=== PATIENT | male | born 1950 | race Caucasian/White ===

== ENCOUNTER 2020-12-13 15:00 | Day surgery (SDC) | payer BC, MEDICARE ==
[~2020-12-13] VITALS: Ht 177.8 cm; Wt 92.6 kg
[2020-12-13] VITALS (17 sets, daily range): BP systolic 107–139; BP diastolic 53–98
[2020-12-13 13:47] LABS: HEMATOCRIT 47 % (40-54); HEMOGLOBIN 15.3 g/dL (13.3-17.7); MEAN CORPUSCULAR HEMOGLOBIN 30 pg (25-34); MEAN CORPUSCULAR HGB CONC 33 g/dL (32-36); MEAN CORPUSCULAR VOLUME 90 fL (80-99); MEAN PLATELET VOLUME 9.4 fL (9.0-12.2); PLATELET COUNT 205 10^3/uL (130-400); WHITE BLOOD COUNT 7.2 10^3/uL (4.3-11.0)
[2020-12-13 14:00] LABS: INR 0.9 (0.8-1.4); PROTHROMBIN TIME PATIENT 12.3 SEC (12.2-14.7)
[2020-12-13 14:06] LABS: ALBUMIN 4.4 GM/DL (3.2-4.5); BILIRUBIN,TOTAL 0.4 MG/DL (0.1-1.0); CALCIUM 10.3 MG/DL (8.5-10.1); CREATININE SERUM 1.34 MG/DL (0.60-1.30); POTASSIUM 4.4 MMOL/L (3.6-5.0); TOTAL PROTEIN 7.4 GM/DL (6.4-8.2)
--- NOTE | 2020-12-13 14:53 | Discharge Inst-Post CATH ---
Discharge Inst-CATH/EP Post Cardiac Cath/EP D/C Inst Follow Up/Plan F/u with Dr Tracy in 2 weeks ACTIVITY * Go Home directly and rest. * Limit activity of the leg (or wrist if it was used) for 7 days including aerobics, swimming, jogging, bicycling, etc. * Restrict stair-climbing for 7 days if possible, if not, climb up with your n on-cath leg, then bring together on the same step. * Avoid lifting, pushing, pulling or excessive movement of the affected ex tremity for 7 days. * Customary sexual activity may be resumed after 2 days-use caution not to use a position that strains or causes pain to the affected extremity. * No driving for 24 hours. * NO SMOKING. * Avoid straining for bowel movements for 7 days. * Gentle walking on level ground is allowed. * Returning to work will depend on the type of procedure and the results. Your doctor will discuss this with you. CALL YOUR DOCTOR FOR ANY OF THE FOLLOWING: *If bleeding from the puncture site occurs- Apply gentle pressure to site with clean cloth and call your doctor or EMS. * If a knot or lump forms under the skin, increases in size, or causes pain. * If bruising appears to be worsening or moving further down your leg instead of disappearing. * Temperature above 101 F. CARE OF YOUR GROIN INCISION; * Bruising or purple discoloration of the skin near the puncture site is common. * You may shower only, no bathtub bathing for 5 days. Be careful to avoid slipping as your leg may feel stiff. * If a closure device was used on your femoral artery, please see the attached guide regarding care of the device and your leg. * Leave dressing on FOR 24 hours. CARE OF YOUR WRIST INCISION; * Bruising or purple discoloration of the skin near the puncture site is common. * You may shower. * DO NOT submerge wrist. * Leave dressing on FOR 24 hours. NIEVES TRACY MD FACP [facility] Dec 13, 2020 14:53
--- NOTE | 2020-12-13 14:55 | Discharge Inst-Cardiology ---
Discharge Inst-Cardiac Discharge Medications New Medications: Atorvastatin Calcium (Atorvastatin Calcium) 20 Mg Tablet 20 MG PO DAILY for 30 Days, #30 TAB 3 Refills Continued Medications: Acetaminophen (Tylenol) 325 Mg Tablet 650 MG PO Q6H PRN for PAIN-MILD (1-4), TAB TAKES 2 (325MG) TABLETS Aspirin (Aspirin) 81 Mg Tab.chew 81 MG PO DAILY, TAB Furosemide (Furosemide) 20 Mg Tablet 20 MG PO DAILY, TAB Losartan Potassium (Losartan Potassium) 25 Mg Tablet 25 MG PO HS, TAB Metoprolol Succinate (Metoprolol Succinate) 25 Mg Tab.er.24h 12.5 MG PO DAILY, TAB TAKES (25MG) TABLET Multivitamin (Multivitamin) 1 Each Tablet 1 EACH PO DAILY, TAB Pantoprazole Sodium (Pantoprazole Sodium) 40 Mg Tablet.dr 40 MG PO DAILY, TAB Potassium Chloride (Potassium Chloride) 10 Meq Tab.er.prt 10 MEQ PO DAILY NIEVES STEWART MD FACP [facility] Dec 13, 2020 14:55
[~2020-12-13 15:00] MED LIST: ACET325T38 PO; ASPI-999 PO; ASPI1TAB PO; ATOR20TA66 PO; FURO20TA4 PO; GBPN100C PO; HEParin (CATH LAB) 2,000 ML IV ONE; LIDOCAINE 1% INJ 20 ML 20 ML VIAL ONE; LOSA25TA41 PO; MTP25TSR PO; MULT-1136 PO; NF-TYLARTH PO; NS IV 1000 ML 1,000 ML IV SCH; NS IV 1000 ML 1,000 ML ONE; OMG1KC PO; PANT40TA52 PO; PATIENT MAY USE OWN MEDS, ALL PO SCH; PNT40TEC PO; POTA10TA36 PO
--- NOTE | 2020-12-13 15:22 | CARDIAC CATHETERIZATION ---
DATE OF SERVICE: 12/13/2020 CARDIAC CATHETERIZATION INDICATIONS: The patient is a 70-year-old gentleman, patient of Dr. Kate, who has recently been diagnosed with new onset of congestive heart failure and echocardiography has indicated a reduced ejection fraction of 35% to 40%. Cardiac catheterization was recommended for further evaluation. Informed consent was obtained. DESCRIPTION OF PROCEDURE: He was brought to the cardiac catheterization laboratory in fasting state. Right groin was prepared and draped in the usual sterile fashion. Lidocaine 1% was used for local anesthesia. Modified Seldinger technique was used to advance a 5-[place] sheath in right femoral artery, 5-[place] JL4 catheter was used for left coronary angiography, 5-[place] JR4 catheter for right coronary angiography, 5-[place] pigtail catheter was used for left heart catheterization and left ventricular angiography. Angiography of the right femoral artery was carried out through the sheath. Mynx was used to achieve hemostasis following sheath removal at the end of the procedure. He tolerated the procedure well. HEMODYNAMICS: Left ventricular end-diastolic pressure following coronary angiography was 12 mmHg. There was no significant pressure gradient on pullback across the aortic valve. Ascending aortic pressure was 100/58 with a mean of 73 mmHg. CORONARY ANGIOGRAPHY: Left main coronary artery is free of significant disease. Left anterior descending artery has 40% ostial and proximal stenosis. Left circumflex artery has mild plaques. Right coronary artery has 30% to 40% mid vessel stenosis and diffuse mild plaques. Right coronary artery is dominant. LEFT VENTRICULAR ANGIOGRAPHY: Left ventricular angiography was carried out in the right anterior oblique projection. Global left ventricular systolic function is moderately impaired. There appears to be global hypokinesis and left ventricular ejection fraction was approximately 40%. CONCLUSIONS: 1. Angiographically mild coronary artery disease. 2. Moderate impairment of global left ventricular systolic function with ejection fraction approximately 40%. 3. Normal left ventricular end-diastolic pressure. DISCUSSION AND RECOMMENDATIONS: Treatment for congestive heart failure with diuretics, angiotensin receptor blockers and beta blockers has been initiated and is being continued. He has symptoms suggestive of sleep apnea and a sleep referral has been made. He has mild to moderate coronary artery disease. Risk factor modification has been reviewed. We have advised him to continue to refrain from cigarette smoking. We have advised statin therapy. Therapy has been initiated with 20 mg of atorvastatin daily and we have advised him to have lipid and hepatic panel was drawn in four weeks. Outpatient followup is advised. Job ID: [id number] DocumentID: [id number] Dictated Date: 12/13/2020 15:00:20 Embroiderer Hand Date: 12/13/2020 15:22:15 Dictated By: NIEVES STEWART MD, MA, FACP, FACC,
== END 2020-12-13 19:48 | disposition home or self-care (01) ==
LOC: CATH 15:00
PROVIDERS: ATTEND Internal Medicine Cardiovascular Disease
DX: I50.21 Acute systolic (congestive) heart failure (principal); I25.10 Atherosclerotic heart disease of native coronary artery without angina pectoris; K21.9 Gastro-esophageal reflux disease without esophagitis; G47.33 Obstructive sleep apnea (adult) (pediatric); I44.7 Left bundle-branch block, unspecified; Z87.891 Personal history of nicotine dependence; Z79.82 Long term (current) use of aspirin; Z79.899 Other long term (current) drug therapy; Z11.2 Encounter for screening for other bacterial diseases
CPT/HCPCS: 80053; 80061; 85027; 85610; 85730; 87081; 93458; C1760; C1894; 36415

== ENCOUNTER 2021-01-20 13:14 | Outpatient (CLI) | payer MEDICARE ==
[~2021-01-20 13:14] MED LIST changes: -HEParin (CATH LAB) 2,000 ML IV ONE; -LIDOCAINE 1% INJ 20 ML 20 ML VIAL ONE; -NS IV 1000 ML 1,000 ML IV SCH; -NS IV 1000 ML 1,000 ML ONE; -PATIENT MAY USE OWN MEDS, ALL PO SCH
== END 2021-01-20 13:35 ==
LOC: SLEEP 13:14
PROVIDERS: ATTEND Otolaryngology Otolaryngology/Facial Plastic Surgery
DX: G47.33 Obstructive sleep apnea (adult) (pediatric) (principal); G47.10 Hypersomnia, unspecified; I50.9 Heart failure, unspecified
CPT/HCPCS: G0399